=== PATIENT | female | born 1950 | race Two or more races ===

== ENCOUNTER 2025-06-09 11:30 | Outpatient (RCR) | payer MEDICARE, MEDICAID, SELFPAY ==
--- NOTE | 2025-05-31 14:34 | PTNOTE_ITS ---
PT OP Initial Eval Patient Information Outpatient Physical Therapy Treatment Date: 05/31/25 Visit Reasons: LEFT SHOULDER PAIN Medical Diagnosis: M75.22 Treatment Dx #1: Left Shoulder Pain Treatment Dx #2: Left Shoulder Mobility Deficits Start of Care: 05/31/25 Date of Onset: 1 year ago Smoking Status Smoking Status: Never smoker Initial Assessment Subjective: Pt is a 74 y/o female reports of chronic left shoulder pain (05/20). Pt mentioned she has hurt the shoulder multiple times throughout the year while gardening. Pt's most recent xray showed calcific tendinitis; however, no MRI has been done. Pt has limitation with overhead motions, lifting, chores, self care, cooking, cleaning, gardening, and performing ADLs. Objective: Left Shoulder AROM Flexion: 90 deg Abduction: 110 deg External Rotation: 60 deg Internal Rotation: 45 deg Left Shoulder MMTs: grossly 3-/5 Left Scapula MMTs: grossly 3-/5 Palpation: TTP supraspinatus tendon Assessment: Pt demonstrate left shoulder pain with mobility deficits leading to difficulty with ADLs. Pt will attempt physical therapy if pain persist Pt will be refer back to provider for further consultation. Short Term and [facility] Goals 1) Increase left shoulder PROM WNL in 6 wks to prevent frozen shoulder 2) Increase left shoulder AROM WFL in 6 wks to be able to perform overhead motions 3) Increase left shoulder MMTs grossly 3+/5 in 6 wks to be able to perform lifting activities 4) Increase left scapula MMTs grossly to 3+/5 in 6 wks to be able to perform recreational activities 5) Indep with HEP Treatment Plan 1) Manual Therapy 2) Therapeutic Activities 3) Therapeutic Exercises 4) Modalities (ice, heat) Frequency and Duration: 2 x wk for 6 wks Certification Dates: 05/31/25 to 08/31/25 Procedure Charges OP PT Eval Mod Complex 30 minutes: Yes
--- NOTE | 2025-06-07 12:36 | PT.ODAYNRPT ---
PT Outpatient Daily Note OP Daily Note Outpatient Physical Therapy Treatment Date: 06/07/25 Visit Reasons: LEFT SHOULDER PAIN Subjective: Pt's shoulder feels better lately due to change in diet and not gardening as much. Pt still notice intermittent pain on the top of the shoulder with certain arm movement. Objective: Please see flow chart for list of ther ex performed Assessment: pain with shoulder flexion and abduction AAROM past shoulder height and instructed patient to work up to pain Plan: Continue with PT Length of Time (minutes) of Treatment: 30 Minutes Procedure Charges Therapeutic Exercise 30 minutes: Yes
--- NOTE | 2025-06-09 11:52 | PT.ODAYNRPT ---
PT Outpatient Daily Note OP Daily Note Outpatient Physical Therapy Treatment Date: 06/09/25 Visit Reasons: LEFT SHOULDER PAIN Subjective: Pt denies of shoulder soreness after last session. Pt still has intermittent pain with certain arm movement. Objective: Please see flow chart for list of ther ex performed Assessment: added isometric exercises with good tolerance Plan: Continue with PT Length of Time (minutes) of Treatment: 30 Minutes Procedure Charges Therapeutic Exercise 30 minutes: Yes
== END 2025-06-10 23:59 | disposition home or self-care (01) ==
LOC: CPTX 11:30
PROVIDERS: PCP Physician Assistant Medical; Referring Provider Physician Assistant Medical; Visit Provider Physician Assistant Medical
DX: M25.512 Pain in left shoulder (principal); M75.22 Bicipital tendinitis, left shoulder; G89.29 Other chronic pain
CPT/HCPCS: 97110; 97162

== ENCOUNTER 2025-06-28 10:30 | Outpatient (RCR) | payer MEDICARE, MEDICAID, SELFPAY ==
--- NOTE | 2025-06-17 16:35 | PT.ODAYNRPT ---
PT Outpatient Daily Note OP Daily Note Outpatient Physical Therapy Treatment Date: 06/17/25 Visit Reasons: left shoulder pain Subjective: pt reports shoulder is feeling better since changing her diet. Objective: Please see flow sheet for ther ex list. Assessment: Pt demonstrates good tolerance with interventions. Plan: Continue with pOC. Length of Time (minutes) of Treatment: 30 Minutes Procedure Charges Therapeutic Exercise 30 minutes: Yes
--- NOTE | 2025-06-21 14:05 | PTNOTE_ITS ---
PT Outpatient Daily Note OP Daily Note Outpatient Physical Therapy Treatment Date: 06/21/25 Visit Reasons: left shoulder pain Subjective: Pt reports L shoulder is hurting but is having a bad day, mentioned her thumbs flared up. Pt shared that pain is worse with reaching behind back. Objective: Please see flow sheet for ther ex list. Assessment: Slow progress of interventions due to pain response. Plan: Continue with pOC. Length of Time (minutes) of Treatment: 30 Minutes [employer] Service Modifier Method I: Divide the number of min of care provided by the [employer]US by the total min of care provided then multiply by 100. If greater than 11 percent modifier is required. Method II: Divide the total time of care provided to patient by 10 (round to the nearest whole number) and add 1 min. to set the minimum time requirement. If treatment total was 60 min., then 10% of 6 min PT CQ modifier applied: CQ Modifier applied Procedure Charges Therapeutic Exercise 30 minutes: Yes
--- NOTE | 2025-06-23 12:59 | PTNOTE_ITS ---
PT Outpatient Daily Note OP Daily Note Outpatient Physical Therapy Treatment Date: 06/23/25 Visit Reasons: left shoulder pain Subjective: Pt reports L shoulder is moving better and notices pain has reduced. Objective: Please see flow sheet for ther ex list. Assessment: Interventions completed with decrease pain response indicating progress. Plan: Continue with poC. Length of Time (minutes) of Treatment: 30 Minutes CONTACT CENTER CONSULTANT Service Modifier Method I: Divide the number of min of care provided by the CONTACT CENTER CONSULTANT/CASING SOAKER by the total min of care provided then multiply by 100. If greater than 11 percent modifier is required. Method II: Divide the total time of care provided to patient by 10 (round to the nearest whole number) and add 1 min. to set the minimum time requirement. If treatment total was 60 min., then 10% of 6 min PT CQ modifier applied: CQ Modifier applied Procedure Charges Therapeutic Exercise 30 minutes: Yes
--- NOTE | 2025-06-28 14:16 | PT.ODS1RPT ---
PT OP Progress/Discharge Note Date of Service: 06/28/25 Progress Note/DC Note Progress Note/Discharge Note: DC Note Patient Information Visit Reasons: left shoulder pain Medical Diagnosis: Left Shoulder Pain Treatment Dx #1: Left Shoulder Pain Treatment Dx #2: Left Shoulder Mobility Deficits Service Discharge Date: 06/28/25 Status Subjective: Pt's shoulder feels a little better, however, she mentioned it might relate to her change in diet. Due to limited shoulder AROM Pt still has limitation with overhead motions, lifting, chores, reaching behind her back, and performing recreational activities. Objective: Left Shoulder AROM Flexion: 100 deg Abduction: 95 deg External Rotation: 60 deg Internal Rotation: 45 deg Left Shoulder MMTs: grossly 3-/5 Left Scapula MMTs: grossly 3-/5 Palpation: TTP supraspinatus tendon Assessment: Pt continues to have left shoulder pain with limited shoulder AROM leading to difficulty with ADLs. Pt will no longer benefit from physical therapy due to minimal progress towards goals. Recommend shoulder MRI to help rule in/out rotator cuff involvement. Pt was instructed on HEP last session and educated to continue exercises to maintain overall mobility. Pt performed all exercises safely, thank you for your referrals. Plan: D/C home with HEP and follow up with provider Recommend shoulder MRI Procedure Charges Therapeutic Exercise 30 minutes: Yes
== END 2025-07-11 23:59 | disposition home or self-care (01) ==
LOC: CPTX 10:30
PROVIDERS: PCP Physician Assistant Medical; Referring Provider Physician Assistant Medical; Visit Provider Physician Assistant Medical
DX: M25.512 Pain in left shoulder (principal); M75.22 Bicipital tendinitis, left shoulder; G89.29 Other chronic pain
CPT/HCPCS: 97110